=== PATIENT | female | born 1995 | race Caucasian/White ===

== ENCOUNTER 2016-08-20 13:15 | Inpatient (IN) | payer MEDICAID ==
[~2016-08-20] VITALS: Ht 162.6 cm; Wt 79.4 kg
[~2016-08-20 13:15] MED LIST: ACET-2165 PO; ALBU8.5H8 INH; CALC-226 PO; DOXE75CA3 PO; HYDR-4100 PO; IMI50 PO; IPRA4AER INH; LEVO500T20 PO; LYR50 PO; METH4TAB3 PO; METO25TA6 PO; OMEP20CA10 PO; SACC250C3 PO
[2016-08-20 13:21] VITALS: BP_SYST 124
[2016-08-20 15:15] LABS: BASOPHILS % (AUTO) 0.4 % (0.0-2.0); EOSINOPHILS # (AUTO) 0.1 K/uL (0.0-0.4); EOSINOPHILS % (AUTO) 1.2 % (0.0-4.0); HEMATOCRIT 42.4 % (36-48); HEMOGLOBIN 13.9 g/dL (12.0-16.0); LYMPHOCYTES # (AUTO) 3.4 K/uL (1.0-5.5); LYMPHOCYTES % (AUTO) 30.6 % (20.5-51.5); MEAN CORPUSCULAR HEMOGLOBIN 28 pg (27-31); MEAN CORPUSCULAR HGB CONC 33 % (32-36); MEAN CORPUSCULAR VOLUME 86 fL (79.0-98.0); MONOCYTES # (AUTO) 0.6 K/uL (0.0-1.0); NEUTROPHILS % (AUTO) 62.8 % (40.0-70.0); PLATELET COUNT (AUTO) 305 K/uL (130-430); RED BLOOD CELL COUNT(AUTO) 4.94 MIL/uL (4.2-6.2); RED CELL DISTRIBUTION WIDTH 12.9 % (9.0-15.0); WHITE BLOOD COUNT (AUTO) 11.1 K/uL (4.8-10.8)
[2016-08-20 15:18] LABS: CREATININE 0.64 mg/dL (0.55-1.30); POTASSIUM 3.8 mmol/L (3.5-5.1)
[2016-08-20 15:20] LABS: INR 1.1 (0.8-1.2); PROTHROMBIN TIME 11.6 SECS (9.5-12.5)
[2016-08-20 15:23] LABS: ALBUMIN 3.9 g/dL (3.4-4.8); TOTAL BILIRUBIN 0.5 mg/dL (0.0-1.0)
[2016-08-20] MEDS ORDERED: DIPHENHYDRAMINE INJ 50 MG/ML VIAL IVP ONE (15:30)
[2016-08-20] MEDS ORDERED: CEFAZOLIN 1 GM IVPB PREMIX 50 ML IV ONE (15:30)
[2016-08-20] MEDS ORDERED: MORPHINE 4 MG/ML INJ. SYRINGE IVP ONE (15:30)
[2016-08-20] MEDS ORDERED: MORPHINE 2 MG/ML INJ. SYRINGE IVP PRN (15:30)
[2016-08-20 16:10] LABS: ERYTHROCYTE SEDIMENTATION RATE 17 MM/HR (0-20)
[2016-08-20 16:31] VITALS: BP_SYST 131
[2016-08-20] MEDS ORDERED: DULO20CA PO (16:42)
[2016-08-20] MEDS ORDERED: methylPREDNISolone SOD SUCC/PF 62.5 MG/ML VIAL IVP ONE (17:00)
[2016-08-20] MEDS: VANCOMYCIN HCL 1,000 MG in NS 250 ML IV SCH (17:31)
[2016-08-20] MEDS ORDERED: ACET325T53 PO (17:43)
[2016-08-20] MEDS ORDERED: ACETAMINOPHEN 325 MG TABLET PO PRN (17:45)
[2016-08-20] MEDS ORDERED: ACETAMINOPHEN 325 MG TABLET PO SCH (18:00)
[2016-08-20] MEDS ORDERED: SUMAtriptan SUCCINATE 50 MG TABLET PO PRN (18:00)
[2016-08-20 19:45] VITALS: BP_SYST 119
[2016-08-20] MEDS ORDERED: AZITHROMYCIN 500 MG/VIAL (ZITHROMAX) IV ONE (20:14)
[2016-08-20] MEDS ORDERED: PROCHLORPERAZINE EDISYLATE 10 MG/2 ML VIAL IVP PRN (20:15)
[2016-08-20] MEDS: AZITHROMYCIN 500 MG in NS 250 ML IV SCH (20:22)
[2016-08-20] MEDS: IPRATROPIUM/ALBUTEROL SULFATE 3 ML AMPUL.NEB INH SCH (20:28)
[2016-08-20 20:30] VITALS: BP_SYST 131
[2016-08-20] MEDS: methylPREDNISolone SOD SUCC/PF 62.5 MG/ML VIAL IVP SCH (20:59)
[2016-08-20] MEDS: PROMETHAZINE HCL 25 MG/ML AMP IVP PRN (20:59)
[2016-08-20] MEDS: DULoxetine HCL 20 MG CAPSULE.DR PO SCH (21:00)
[2016-08-20] MEDS: HYDROmorphone 1 MG INJ. 1 MG/ML AMPUL IVP PRN (21:00)
[2016-08-20] MEDS ORDERED: NON-FORMULARY MEDICATION (Saccharomyces Boulardii (Florastor) 250 MG) PO SCH (21:00)
[2016-08-20] MEDS: METOPROLOL TARTRATE 25 MG TABLET PO SCH (21:27)
[2016-08-20] MEDS: CALCIUM CARBONATE/VITAMIN D3 1 TAB TABLET PO SCH (21:27)
[2016-08-20] MEDS: PREGABALIN 25 MG CAPSULE (LYRICA) PO SCH (21:27)
[2016-08-20] MEDS: DOXEPINE (SINEQUAN) 25 MG CAP PO SCH (21:28)
[2016-08-20] MEDS ORDERED: DULoxetine HCL 30 MG CAPSULE.DR (CYMBALTA) ONE (21:34)
[2016-08-20] MEDS: CEFAZOLIN 1 GM IVPB PREMIX 50 ML IV SCH (22:55)
[2016-08-21 00:01] VITALS: BP_SYST 101
[2016-08-21] MEDS: IPRATROPIUM/ALBUTEROL SULFATE 3 ML AMPUL.NEB INH SCH ×4 (00:46→19:35)
[2016-08-21] MEDS: DIPHENHYDRAMINE INJ 50 MG/ML VIAL IVP PRN ×3 (02:08→21:18)
[2016-08-21 04:56] VITALS: BP_SYST 109
[2016-08-21] MEDS: methylPREDNISolone SOD SUCC/PF 62.5 MG/ML VIAL IVP SCH ×3 (05:08→21:18)
[2016-08-21] MEDS: CEFAZOLIN 1 GM IVPB PREMIX 50 ML IV SCH ×3 (05:08→21:17)
[2016-08-21] MEDS: PROMETHAZINE HCL 25 MG/ML AMP IVP PRN ×3 (05:09→21:19)
[2016-08-21] MEDS: HYDROmorphone 1 MG INJ. 1 MG/ML AMPUL IVP PRN ×4 (05:10→20:20)
[2016-08-21] MEDS: VANCOMYCIN HCL 1,000 MG in NS 250 ML IV SCH ×2 (05:36→18:43)
[2016-08-21 07:30] VITALS: BP_SYST 118
[2016-08-21] MEDS: OMEPRAZOLE 20 MG CAPSULE.DR (PriLOSEC) PO SCH (08:06)
[2016-08-21] MEDS: LACTOBACILLUS RHAMNOSUS GG 1 CAP CAPSULE PO SCH ×2 (08:07→20:36)
[2016-08-21] MEDS: CALCIUM CARBONATE/VITAMIN D3 1 TAB TABLET PO SCH ×2 (08:07→20:37)
[2016-08-21] MEDS: PREGABALIN 25 MG CAPSULE (LYRICA) PO SCH ×2 (08:08→20:36)
[2016-08-21] MEDS: METOPROLOL TARTRATE 25 MG TABLET PO SCH ×2 (08:09→20:37)
[2016-08-21 13:01] VITALS: BP_SYST 111
[2016-08-21 16:08] VITALS: BP_SYST 119
[2016-08-21] MEDS: AZITHROMYCIN 500 MG in NS 250 ML IV SCH (17:05)
[2016-08-21 19:30] VITALS: BP_SYST 109
[2016-08-21] MEDS: DOXEPINE (SINEQUAN) 25 MG CAP PO SCH (20:36)
[2016-08-21] MEDS: DULoxetine HCL 20 MG CAPSULE.DR PO SCH (20:37)
[2016-08-22] MEDS: HYDROmorphone 1 MG INJ. 1 MG/ML AMPUL IVP PRN ×4 (00:35→13:02)
[2016-08-22] MEDS: IPRATROPIUM/ALBUTEROL SULFATE 3 ML AMPUL.NEB INH SCH ×3 (00:48→13:17)
[2016-08-22] MEDS: CEFAZOLIN 1 GM IVPB PREMIX 50 ML IV SCH ×2 (05:08→12:59)
[2016-08-22] MEDS: methylPREDNISolone SOD SUCC/PF 62.5 MG/ML VIAL IVP SCH ×2 (05:08→13:00)
[2016-08-22] MEDS: PROMETHAZINE HCL 25 MG/ML AMP IVP PRN ×2 (05:09→13:01)
[2016-08-22] MEDS: DIPHENHYDRAMINE INJ 50 MG/ML VIAL IVP PRN ×2 (05:09→13:00)
[2016-08-22 05:13] VITALS: BP_SYST 110
[2016-08-22] MEDS: VANCOMYCIN HCL 1,000 MG in NS 250 ML IV SCH (05:38)
[2016-08-22 08:00] VITALS: BP_SYST 112
[2016-08-22] MEDS: CALCIUM CARBONATE/VITAMIN D3 1 TAB TABLET PO SCH (08:44)
[2016-08-22] MEDS: LACTOBACILLUS RHAMNOSUS GG 1 CAP CAPSULE PO SCH (08:44)
[2016-08-22] MEDS: METOPROLOL TARTRATE 25 MG TABLET PO SCH (08:44)
[2016-08-22] MEDS: PREGABALIN 25 MG CAPSULE (LYRICA) PO SCH (08:45)
[2016-08-22] MEDS: OMEPRAZOLE 20 MG CAPSULE.DR (PriLOSEC) PO SCH (08:45)
[2016-08-22 11:19] LABS: RA LATEX TURBID <10.0 IU/mL (0.0-13.9)
[2016-08-22 12:05] VITALS: BP_SYST 109
[2016-08-22 16:02] VITALS: BP_SYST 119
[2016-08-22 16:52] VITALS: BP_SYST 119
[2016-08-22] MEDS ORDERED: AMPICILLIN SODIUM 1 GM in NS 50 ML IV SCH (18:00)
[2016-08-23 12:06] LABS: COMPLEMENT C4, SERUM 39 mg/dL (14-44)
[2016-08-24 13:39] LABS: ANTI NUCLEAR AB WITH REFLEX Negative (Negative)
[2016-08-25 11:11] LABS: COMPLEMENT C3, SERUM 199 mg/dL (82-167)
== END 2016-08-22 16:35 | disposition home or self-care (01) | DRG 383 ==
LOC: SED 13:15 → STU 15:29
PROVIDERS: ADMIT Internal Medicine; ATTEND Internal Medicine Hospice and Palliative Medicine
DX: L03.113 Cellulitis of right upper limb (principal); J85.0 Gangrene and necrosis of lung; L95.9 Vasculitis limited to the skin, unspecified; S50.11XA Contusion of right forearm, initial encounter; J43.0 Unilateral pulmonary emphysema [MacLeod's syndrome]; R00.0 Tachycardia, unspecified; M79.7 Fibromyalgia; D68.0 Von Willebrand disease; K21.9 Gastro-esophageal reflux disease without esophagitis; F41.9 Anxiety disorder, unspecified; F32.9 Major depressive disorder, single episode, unspecified; G43.909 Migraine, unspecified, not intractable, without status migrainosus; E66.9 Obesity, unspecified; Z68.30 Body mass index [BMI] 30.0-30.9, adult; Z88.5 Allergy status to narcotic agent; Z91.013 Allergy to seafood; Z91.048 Other nonmedicinal substance allergy status; Z79.899 Other long term (current) drug therapy; Z88.1 Allergy status to other antibiotic agents; Z90.49 Acquired absence of other specified parts of digestive tract; X58.XXXA Exposure to other specified factors, initial encounter; Y93.89 Activity, other specified; Y92.89 Other specified places as the place of occurrence of the external cause; Y99.8 Other external cause status
CPT/HCPCS: 36415; 80053; 83605; 85025; 85610-TC; 85651-TC; 86038; 86160; 86162; 86431; 87040-TC; 93005; 94640; 94760; 96365; 96375; 99285; J0290; J0456; J0690; J1170; J1200; J2270; J2550; J2930; J3370; J7050

== ENCOUNTER 2019-05-09 13:10 | Emergency (ER) | payer MEDICAID ==
[~2019-05-09] VITALS: Ht 160 cm; Wt 99.8 kg
[~2019-05-09 13:10] MED LIST changes: +ACET325T53 PO; -CALC-226 PO; +CALC-823 PO; +DULO20CA PO; -HYDR-4100 PO; -LEVO500T20 PO; -METH4TAB3 PO; -OMEP20CA10 PO; +OMEP20CA11 PO
[2019-05-09 13:28] VITALS: BP_SYST 115
[2019-05-09 13:45] VITALS: BP_SYST 115
== END 2019-05-09 13:45 | disposition home or self-care (01) ==
LOC: SED 13:10
DX: J20.9 Acute bronchitis, unspecified (principal); R00.0 Tachycardia, unspecified; J44.9 Chronic obstructive pulmonary disease, unspecified; Z79.899 Other long term (current) drug therapy; Z88.1 Allergy status to other antibiotic agents; Z88.5 Allergy status to narcotic agent; Z88.6 Allergy status to analgesic agent; Z91.030 Bee allergy status; Z91.013 Allergy to seafood
CPT/HCPCS: 99283